=== PATIENT | male | born 1985 | race American Indian/Alaskan Native ===

== ENCOUNTER 2016-10-02 17:40 | Emergency (ER) | payer OTHER ==
[2016-10-02 18:24] VITALS: BP 125/69
--- NOTE | 2016-10-02 20:41 | Emergency Department Report ---
ED Laceration HPI - HPI Chief Complaint: Laceration/Recheck/Suture Stated Complaint: RIGHT EYE LAC Time Seen by Provider: 10/02/16 20:24 Occurred When: Today Location: Head (laceration to right facial area) Tetanus Status: Up to Date Laceration Symptoms: No Foreign Body Sensation, No Numbness, No Weakness, No Pain Other History: Patient reports that he has a cut just above his right eye. He said it happened today about 3-4 hours prior to coming to the emergency room. Stated that he was in around and got. His any pain to eye. He wasn't bleeding at first but it stopped.denies any eye injury or redness. Denies any blurred vision or decreased vision. Denies any head injury or loss of consciousness. ED Review of Systems ROS: Stated complaint: RIGHT EYE LAC Other details as noted in HPI Comment: All other systems reviewed and negative Constitutional: denies: chills, fever Eyes: denies: eye pain, vision change ENT: denies: epistaxis Respiratory: no symptoms reported Cardiovascular: denies: chest pain, palpitations, edema, syncope Gastrointestinal: denies: abdominal pain, nausea, vomiting Skin: other (cut to rt face) Neurological: denies: headache, weakness, numbness, paresthesias, confusion, abnormal gait, vertigo ED Past Medical Hx - Past Medical History Previous Medical History?: No - Surgical History Past Surgical History?: No - Family History Family history: no significant - Social History Smoking Status: Never Smoker Substance Use Type: Alcohol Laceration Physical Exam - Exam General: Vital signs noted. No distress. Alert and acting appropriately. This is a 31-year-old male well-nourished well-developed in no acute distress. Head: Normocephalic atraumatic, no contusion or abrasion Neck: Supple, no C-spine tenderness, no tracheal deviation. Nontender to palpate. no adenopathy Neurological: GCS of 15, alert and oriented 3. Speech is clear and fluid. Normal gait. No motor or sensory deficit. Normal reflexes. No facial drooping. No pronator drift and negative Romberg. Eyes: Bilateral pupils equal and reactive to light, bilateral EOM intact. Bilateral sclera and conjunctiva without injection. Normal accommodation. No nystagmus. Lungs: Clear to auscultate bilaterally no rhonchi wheezes or rales. Normal work of breathing extremity; No CCE. +2 pulses. No neurovascular compromise Cardiovascular: S1-S2, regular rate rhythm. No murmurs. Laceration Location: Other (0.25 cm area to right face decided brow. Area appears to be already healing without any bleeding. No redness or swelling noted.) Laceration Exam: Yes Normal Distal CMS, No Foreign Body, No Exposed Tendon, Vessel, or Nerve, No Tendon Injury ED Course Vital Signs 10/02/16 18:19 Temperature 98.4 F Pulse Rate 67 Respiratory 16 Rate Blood Pressure 125/69 O2 Sat by Pulse 98 Oximetry - Reevaluation(s) Reevaluation #1: 10/02/16 20:42 Uneventful ED stay - Laceration /Wound Repair Right Face Wound Location: face Wound's Depth, Shape: superficial Wound Explored: clean Irrigated w/ Saline (ccs): 50 Betadine Prep?: Yes Volume Anesthetic (ccs): 0 Wound Debrided: moderate Wound Repaired With: Steri-strips (4 Steri-Strips placed the site.) Sterile Dressing Applied?: Yes ED Medical Decision Making - Medical Decision Making ED course: With simple linear 0.5 cm laceration to right facial area that appears to be healing. Area already hemostased. See procedure note for details. I discussed the patient that he will need to keep Steri-Strips on until they fall off and if he develops any signs of infection such as redness, drainage, fever and increased pain to return to emergency room [facility]. Pt tetanus shot is up-to-date and he is neurologically intact. He voiced understanding of discharge instruction discharged home in stable condition. Critical care attestation.: If time is entered above; I have spent that time in minutes in the direct care of this critically ill patient, excluding procedure time. ED Disposition Clinical Impression: Simple laceration of face Qualifiers: Encounter type: initial encounter Qualified Code(s): S09.93XA - Unspecified injury of face, initial encounter Disposition: DISCHARGED TO HOME OR SELFCARE Is pt being admited?: No Does the pt Need Aspirin: No Condition: Stable Instructions: Laceration (ED) Additional Instructions: Please keep affected area clean and dry Do not remove Steri-Strips as they'll fall off eventually If you noticed redness, drainage, swelling and increased pain to the site. Return to emergency room [facility] Referrals: Your, PCP [Other] - 3-5 Days Forms: Work/School Release Form(ED)
== END 2016-10-02 20:51 | disposition home or self-care (01) ==
LOC: ED 17:40
DX: S01.81XA Laceration without foreign body of other part of head, initial encounter (principal); W45.8XXA Other foreign body or object entering through skin, initial encounter; Y93.9 Activity, unspecified; Y99.9 Unspecified external cause status; Y92.89 Other specified places as the place of occurrence of the external cause
CPT/HCPCS: 99282

== ENCOUNTER 2018-01-17 15:47 | Emergency (ER) | payer OTHER ==
[2018-01-17 16:02] VITALS: BP 123/58
[2018-01-17] MEDS ORDERED: ASPIRIN PO ONE (16:02)
[2018-01-17 16:24] LABS: Basophils % (Auto) 0.4 % (0.0-1.8); Eosinophils # (Auto) 0.1 K/mm3 (0.0-0.4); Eosinophils % (Auto) 1.2 % (0.0-4.3); Hematocrit 47.1 % (35.5-45.6); Hemoglobin 15.5 gm/dl (11.8-15.2); Lymphocytes # (Auto) 1.9 K/mm3 (1.2-5.4); Lymphocytes % (Auto) 37.3 % (13.4-35.0); Mean Corpuscular HGB Conc 33 % (32-34); Mean Corpuscular Hemoglobin 30 pg (28-32); Mean Corpuscular Volume 90 fl (84-94); Monocytes # (Auto) 0.5 K/mm3 (0.0-0.8); Red Blood Count 5.23 M/mm3 (3.65-5.03); Red Cell Distribution Width 14.2 % (13.2-15.2)
[2018-01-17 16:39] LABS: BUN/Creatinine Ratio 10; Blood Urea Nitrogen 9 mg/dL (9-20); Calcium 9.6 mg/dL (8.4-10.2); Hemolysis Index 6
[2018-01-17 17:29] LABS: Platelet Count 179 K/mm3 (140-440)
--- NOTE | 2018-01-17 18:42 | Emergency Department Report ---
ED Chest Pain HPI - General Chief Complaint: Chest Pain Stated Complaint: NUMBNESS IN LEFT ARM AND SHARP CHEST PAIN Time Seen by Provider: 01/17/18 18:32 Source: patient Mode of arrival: Ambulatory Limitations: No Limitations - History of Present Illness Initial Comments: Mr. Burns is a healthy 32-year-old male has had 1 week of chest pain left- sided especially at night when laying flat. He has left arm numbness. No new changes in his life. No social stressors. Symptoms mostly occur at night. Symptoms are not exertional. No family history of heart disease. No significant past medical history. MD Complaint: chest pain -: Gradual, week(s) (1) Onset: during rest, other (mostly at night while laying in bed) Pain Location: left chest Pain Radiation: other (left arm numbness) Severity: mild Quality: sharp Consistency: intermittent Worsens With: movement Other Symptoms: other (odd sensation in throat) - Related Data Home Medications Medication Instructions Recorded Confirmed Last Taken No Known Home Medications [No 10/02/16 10/02/16 Unknown Reported Home Medications] Allergies Allergy/AdvReac Type Severity Reaction Status Date / Time No Known Allergies Allergy Unverified 10/02/16 18:19 Heart Score - HEART Score History: Slightly suspicious EKG: Normal Age: < 45 Risk factors: No known risk factors Troponin: < normal limit HEART Score: 0 ED Review of Systems ROS: Stated complaint: NUMBNESS IN LEFT ARM AND SHARP CHEST PAIN Other details as noted in HPI Comment: All other systems reviewed and negative Constitutional: denies: fever, malaise ENT: throat pain Respiratory: denies: cough Cardiovascular: chest pain ED Past Medical Hx - Past Medical History Previous Medical History?: No - Surgical History Past Surgical History?: No - Family History Family history: no significant - Social History Smoking Status: Current Every Day Smoker Substance Use Type: Alcohol - Medications Home Medications: Home Medications Medication Instructions Recorded Confirmed Last Taken Type No Known Home Medications [No 10/02/16 10/02/16 Unknown History Reported Home Medications] ED Physical Exam - General Limitations: No Limitations General appearance: alert, in no apparent distress - Head Head exam: Present: atraumatic, normocephalic - Eye Eye exam: Present: normal appearance - ENT ENT exam: Present: mucous membranes moist - Neck Neck exam: Present: normal inspection. Absent: tenderness, meningismus - Respiratory Respiratory exam: Present: normal lung sounds bilaterally. Absent: respiratory distress - Cardiovascular Cardiovascular Exam: Present: regular rate, normal rhythm. Absent: systolic murmur, diastolic murmur, rubs, gallop - GI/Abdominal GI/Abdominal exam: Present: soft, normal bowel sounds. Absent: distended, tenderness, guarding, rebound - Rectal Rectal exam: Present: deferred - Extremities Exam Extremities exam: Present: normal inspection - Back Exam Back exam: Present: normal inspection - Neurological Exam Neurological exam: Present: alert, oriented X3 - Psychiatric Psychiatric exam: Present: normal affect, normal mood - Skin Skin exam: Present: warm, dry, intact, normal color. Absent: rash - Other Other exam information: Left upper extremity: Median ulnar and radial nerves intact motor and sensation intact ED Course Vital Signs 01/17/18 15:58 Temperature 99.5 F Pulse Rate 60 Respiratory 18 Rate Blood Pressure 123/58 O2 Sat by Pulse 99 Oximetry ED Medical Decision Making - Lab Data Result diagrams: 01/17/18 16:10 01/17/18 16:10 Laboratory Results - last 24 hr 01/17/18 01/17/18 16:10 16:10 WBC 5.2 RBC 5.23 H Hgb 15.5 H Hct 47.1 H MCV 90 MCH 30 MCHC 33 RDW 14.2 Plt Count 179 Lymph % (Auto) 37.3 H Kaufman % (Auto) 9.0 H Eos % (Auto) 1.2 Baso % (Auto) 0.4 Lymph # 1.9 Kaufman # 0.5 Eos # 0.1 Baso # 0.0 Seg Neutrophils % 52.1 Seg Neutrophils # 2.7 Sodium 139 Potassium 4.1 Chloride 102.3 Carbon Dioxide 29 Anion Gap 12 BUN 9 Creatinine 0.9 Estimated GFR > 60 BUN/Creatinine Ratio 10 Glucose 97 Calcium 9.6 Troponin T < 0.010 Vital Signs - 24 hr 01/17/18 15:58 Temperature 99.5 F Pulse Rate 60 Respiratory 18 Rate Blood Pressure 123/58 O2 Sat by Pulse 99 Oximetry - EKG Data -: EKG Interpreted by Tn EKG shows normal: sinus rhythm, axis, intervals, QRS complexes, ST-T waves Rate: normal - EKG Data 01/17/18 18:41 NSR nl rate nl axis nl intervals no ST-T signs of ischemia no ST elevation rate 60 bpm - Medical Decision Making Mr. Burns is healthy 32-year-old male who has chest pain atypical for ACS. PERC negative for PE. Symptoms occur at night. I suspect GERD. Prescribed famotidine. Referred to outside clinic for further evaluation. Critical care attestation.: If time is entered above; I have spent that time in minutes in the direct care of this critically ill patient, excluding procedure time. ED Disposition Clinical Impression: Chest pain Disposition: DC-01 TO HOME OR SELFCARE Is pt being admited?: No Does the pt Need Aspirin: No Condition: Stable Instructions: Chest Pain (ED), Gastroesophageal Reflux Disease (ED) Referrals: [facility] [Outside] - 3-5 Days Forms: Work/School Release Form(ED) Time of Disposition: 18:43
== END 2018-01-17 18:48 | disposition home or self-care (01) ==
LOC: ED 15:47
DX: R07.89 Other chest pain (principal); R20.0 Anesthesia of skin; F17.200 Nicotine dependence, unspecified, uncomplicated
CPT/HCPCS: 36415; 80048; 84484; 85025; 93005; 93010